=== PATIENT | female | born 1945 | race African-American/Black ===

== ENCOUNTER → 2017-01-30 | Outpatient (CLI) | payer OTHER ==
--- NOTE | ~2017-01-30 | MY11 ---
[facility] A Service of [facility] RADIOLOGY TEXT RESULTS PATIENT: REJI SHARMA LOCATION: [facility] : 49 UNIT #: [id number] AGE: [address]: Letty Amador MD SEX: F ORDER DR: [id number] [facility]. [place], [place] [address] [id number] O MR#: [id number] Acc #: [id number] NAME: REJI SHARMA : 1945 SEX: F STUDY DATE/TIME: 01/30/2017 10:38 UNIT: [facility] ROOM: STUDY DESCRIPTION: MY Mammogram Screening Dig Ze Attending Physician: Letty Amador M.D. Ordering Physician: Letty Amador M.D. Primary Care Physician: Letty Amador M.D. MEDICAL IMAGING REPORT This report is preliminary unless electronic signature is present EXAM Bilateral digital screening mammogram with CAD 01/30/2017 INDICATIONS 71-year-old female for routine screening. No reported problems and no personal or family history of breast cancer. No surgeries. CC and MLO views of the breasts were obtained and reviewed with an approved CAD device. COMPARISON STUDIES Comparison 11/14/2015, 11/13/2014, 11/11/2013 FINDINGS Breast parenchyma is composed of scattered fibroglandular densities. The pattern is unchanged. There is no new dominant nodule, mass or suspicious cluster of microcalcifications. IMPRESSION Negative screening mammogram. One year followup recommended. Patients over the age of 40 are entered into a reminder system with target due date for the next mammogram. A result letter will also be sent to the patient. BIRADS: 1 - Negative Dictated by... Fito Gunn M.D. THIS IS AN ELECTRONICALLY VERIFIED REPORT Fito Gunn M.D. at 01/30/2017 3:40 PM ARUNA/colleen [facility] A Service [facility] RADIOLOGY TEXT RESULTS PATIENT: REJI SHARMA LOCATION: [facility] : 47 UNIT #: [id number] AGE: [address]: Letty Amador MD SEX: F ORDER DR: TD: 01/30/2017 15:12 JOB #: [id number] MEDICAL IMAGING REPORT COPY
--- NOTE | ~2017-01-30 | BD1 ---
[facility] A Service of [facility] RADIOLOGY TEXT RESULTS PATIENT: REJI SHARMA LOCATION: [facility] : 47 UNIT #: [id number] AGE: [address]: Letty Amador MD SEX: F ORDER DR: [id number] [facility] [address] [place], [place] [address] [id number] O MR#: [id number] Acc #: [id number] NAME: REJI SHARMA : 1945 SEX: F STUDY DATE/TIME: 01/30/2017 10:56 UNIT: [facility] ROOM: STUDY DESCRIPTION: BD Dexa Bone Dens 1+ Site Attending Physician: Letty Amador M.D. Ordering Physician: Letty Amador M.D. Primary Care Physician: Letty Amador M.D. MEDICAL IMAGING REPORT This report is preliminary unless electronic signature is present EXAM DXA scan, 01/30/2017. HISTORY Status post menopause with no hormone replacement therapy. Osteopenia. Arthritis and diabetes. Hypertension with blood pressure medication for 10 years. FINDINGS Bone mineral density in the lumbar spine from L1-L4 was 1.217 gm/cm2, which is 1.5 standard deviations above the mean when compared to the young adult reference population which is within the range of normal. This is 2.9 standard deviations above the mean when compared to the age-matched population. Bone mineral density in the left femoral neck was 0.883 gm/cm2, which is 0.3 standard deviations above the mean when compared to the young adult reference population which is within the range of normal. This is 0.9 standard deviations above the mean when compared to the age-matched population. IMPRESSION Bone mineral density in the lumbar spine and left hip within the range of normal. Dictated by... Kenneth Cordova M.D. THIS IS AN ELECTRONICALLY VERIFIED REPORT Kenneth Cordova M.D. at 01/30/2017 4:58 PM [facility] A Service of [facility] RADIOLOGY TEXT RESULTS PATIENT: REJI SHARMA LOCATION: [facility] : 47 UNIT #: [id number] AGE: [address]: Letty Amador MD SEX: F ORDER DR: MADELINE/qiana TD: 01/30/2017 14:09 JOB #: [id number] MEDICAL IMAGING REPORT COPY
== END | disposition home or self-care (01) ==
LOC: CWCC 10:17
DX: Z12.31 Encounter for screening mammogram for malignant neoplasm of breast (principal); Z78.0 Asymptomatic menopausal state
CPT/HCPCS: 77080; G0202